=== PATIENT | female | born 1945 | race Caucasian/White ===

== ENCOUNTER → 2016-03-24 | Outpatient (CLI) | payer MEDICARE, BC, OTHER ==
[~2016-03-24] VITALS: Ht 172.7 cm; Wt 108.2 kg
[~2016-03-24] MED LIST: ALEVE220 MG PO; AMLOPIDINE PO; ASPI325T6 PO; CALCIUM 600600 M2; CELEBREX 200MG200 MG PO; CELEBREX50 MG PO; CELEXA 20MG20 MG/TAB PO; CELEXA10 MG PO; COMPLETE SENIOR1 TA1 PO; COZAAR 50MG50 MG/TAB PO; DETROL 2MG TAB2 MG; DETROL LA4 PO; FE-TABS325 MG PO; FERROUS SULFATE65 MG; FERROUS SULFATE65 MG PO; FLONASEALLERGY NS; FOLIC ACID 40400 MCG PO; GABAPENTIN; HCTZ; IRON TABLETS325 MG PO; LIPITOR20 MG PO; LIPITOR40 MG PO; NORCO 325 MG-51 TAB PO; NORCO 325 MG-7.1 TAB PO; OSCAL 500 TAB500 MG PO; PRILOSEC 20MG20 MG PO; PROAIR HFA0.09 MG/AC IH; ROXICODONE 55 MG/TAB PO; SINGULAIR; SPIRONOLACTONE25 MG PO; STOOL SOFTENER100 M2 PO; THERAGRAN1 TA1 PO; ULTRAM; VITAMIN C500 MG PO; VITAMIN D1000 IU; VITAMIN D1000 IU PO; VITAMIN D31000 I1 PO; [UNRECOGNIZED DRUG - OTHER]; [UNRECOGNIZED DRUG - REMARK]
== END ==
LOC: LIGHT 01-14 09:47
DX: I10 Essential (primary) hypertension (principal); E78.4 Other hyperlipidemia; G47.33 Obstructive sleep apnea (adult) (pediatric); E66.09 Other obesity due to excess calories; Z68.35 Body mass index [BMI] 35.0-35.9, adult

== ENCOUNTER → 2016-09-28 | Outpatient (CLI) | payer MEDICARE, BC, OTHER | LOC: MC.RAD 08:00 | DX: Z12.31 Encounter for screening mammogram for malignant neoplasm of breast (principal); Z01.419 Encounter for gynecological examination (general) (routine) without abnormal findings ==

== ENCOUNTER → 2016-10-27 | Outpatient (CLI) | payer MEDICARE, BC, OTHER ==
[~2016-10-27] VITALS: Ht 172.7 cm; Wt 110.0 kg
[2016-10-27 14:48] VITALS: BP 120/70; PULSE 72
== END ==
LOC: LIGHT
DX: I10 Essential (primary) hypertension (principal); E78.5 Hyperlipidemia, unspecified; G47.33 Obstructive sleep apnea (adult) (pediatric); E66.9 Obesity, unspecified; Z68.36 Body mass index [BMI] 36.0-36.9, adult; Z71.3 Dietary counseling and surveillance

== ENCOUNTER → 2016-12-22 | Outpatient (CLI) | payer MEDICARE, BC, OTHER ==
[~2016-12-22] VITALS: Ht 172.7 cm; Wt 112.0 kg
[2016-12-22 10:57] VITALS: BP 106/50; PULSE 68
== END ==
LOC: LIGHT 10:22
DX: I10 Essential (primary) hypertension (principal); E78.5 Hyperlipidemia, unspecified; G47.33 Obstructive sleep apnea (adult) (pediatric); E66.9 Obesity, unspecified; Z68.37 Body mass index [BMI] 37.0-37.9, adult; Z71.3 Dietary counseling and surveillance

== ENCOUNTER → 2017-01-26 | Outpatient (CLI) | payer MEDICARE, BC, OTHER ==
[~2017-01-26] VITALS: Ht 172.7 cm; Wt 113.2 kg
[2017-01-26 09:19] VITALS: BP 120/50; PULSE 76
== END ==
LOC: LIGHT 08:46
DX: I10 Essential (primary) hypertension (principal); E78.5 Hyperlipidemia, unspecified; G47.33 Obstructive sleep apnea (adult) (pediatric); E66.9 Obesity, unspecified; Z68.37 Body mass index [BMI] 37.0-37.9, adult; Z71.3 Dietary counseling and surveillance
CPT/HCPCS: G0463

== ENCOUNTER → 2018-02-01 | Outpatient (CLI) | payer MEDICARE, BC, OTHER ==
[~2018-02-01] VITALS: Ht 172.7 cm; Wt 119.3 kg
[2018-02-01 15:12] VITALS: BP 120/60; PULSE 64
== END ==
LOC: LIGHT 03-16 10:06
DX: I10 Essential (primary) hypertension (principal); E78.5 Hyperlipidemia, unspecified; G47.33 Obstructive sleep apnea (adult) (pediatric); E66.9 Obesity, unspecified; Z68.41 Body mass index [BMI] 40.0-44.9, adult; Z71.3 Dietary counseling and surveillance
CPT/HCPCS: G0463

== ENCOUNTER → 2018-03-12 | Outpatient (CLI) | payer MEDICARE, BC, OTHER | LOC: MC.RAD 13:37 | DX: Z12.31 Encounter for screening mammogram for malignant neoplasm of breast (principal) ==

== ENCOUNTER → 2018-03-22 | Outpatient (CLI) | payer MEDICARE, BC, OTHER ==
[~2018-03-22] VITALS: Ht 172.7 cm; Wt 119.5 kg
[2018-03-22 11:33] VITALS: BP 136/50; PULSE 72
== END ==
LOC: LIGHT
DX: I10 Essential (primary) hypertension (principal); E78.5 Hyperlipidemia, unspecified; G47.33 Obstructive sleep apnea (adult) (pediatric); E66.9 Obesity, unspecified; Z68.41 Body mass index [BMI] 40.0-44.9, adult; Z71.3 Dietary counseling and surveillance
CPT/HCPCS: G0463

== ENCOUNTER → 2018-04-19 | Outpatient (CLI) | payer MEDICARE, BC, OTHER ==
[~2018-04-19] VITALS: Ht 172.7 cm; Wt 119.7 kg
[2018-04-19 10:20] VITALS: BP 130/50; PULSE 80
== END ==
LOC: LIGHT 10:05
DX: I10 Essential (primary) hypertension (principal); E78.5 Hyperlipidemia, unspecified; G47.33 Obstructive sleep apnea (adult) (pediatric); E66.9 Obesity, unspecified; Z68.41 Body mass index [BMI] 40.0-44.9, adult; Z71.3 Dietary counseling and surveillance
CPT/HCPCS: G0463

== ENCOUNTER → 2018-05-17 | Outpatient (CLI) | payer MEDICARE, BC, OTHER ==
[~2018-05-17] VITALS: Ht 172.7 cm; Wt 116.8 kg
[2018-05-17 11:11] VITALS: BP 134/74; PULSE 71
== END ==
LOC: LIGHT 10:37
DX: E78.5 Hyperlipidemia, unspecified (principal); I10 Essential (primary) hypertension; G47.33 Obstructive sleep apnea (adult) (pediatric); Z68.39 Body mass index [BMI] 39.0-39.9, adult; Z71.3 Dietary counseling and surveillance
CPT/HCPCS: G0463

== ENCOUNTER → 2018-07-19 | Outpatient (CLI) | payer MEDICARE, BC, OTHER ==
[~2018-07-19] VITALS: Ht 172.7 cm; Wt 116.6 kg
[2018-07-19 13:53] VITALS: BP 126/68; PULSE 76
== END ==
LOC: LIGHT 06-21 16:06
DX: I10 Essential (primary) hypertension (principal); E78.5 Hyperlipidemia, unspecified; G47.33 Obstructive sleep apnea (adult) (pediatric); E66.9 Obesity, unspecified; Z68.39 Body mass index [BMI] 39.0-39.9, adult; Z71.3 Dietary counseling and surveillance
CPT/HCPCS: G0463

== ENCOUNTER 2018-07-20 11:30 | Outpatient (RCR) | payer MEDICARE, BC, OTHER | END 2018-07-20 11:45 | disposition home or self-care (01) | LOC: WSC 11:30 | DX: M17.11 Unilateral primary osteoarthritis, right knee (principal); M25.562 Pain in left knee ==

== ENCOUNTER 2019-01-31 12:39 | Emergency (ER) | payer MEDICARE, BC, OTHER ==
[~2019-01-31] VITALS: Ht 175.3 cm; Wt 118.2 kg
[2019-01-31 12:59] VITALS: BP 156/69; TEMP 97.5
[2019-01-31 16:14] VITALS: PULSE 70
== END 2019-01-31 16:15 | disposition home or self-care (01) ==
LOC: COL.ER 12:39
DX: S52.572A Other intraarticular fracture of lower end of left radius, initial encounter for closed fracture (principal); S80.02XA Contusion of left knee, initial encounter; S09.90XA Unspecified injury of head, initial encounter; I10 Essential (primary) hypertension; F32.9 Major depressive disorder, single episode, unspecified; M54.9 Dorsalgia, unspecified; G89.29 Other chronic pain; W01.198A Fall on same level from slipping, tripping and stumbling with subsequent striking against other object, initial encounter; Y92.009 Unspecified place in unspecified non-institutional (private) residence as the place of occurrence of the external cause
CPT/HCPCS: Q4050

== ENCOUNTER → 2019-03-26 | Outpatient (CLI) | payer MEDICARE, BC, OTHER | LOC: MC.RAD 16:42 | DX: Z12.31 Encounter for screening mammogram for malignant neoplasm of breast (principal) ==

== ENCOUNTER 2019-07-06 14:43 | Emergency (ER) | payer MEDICARE, BC, OTHER ==
[~2019-07-06] VITALS: Ht 175.3 cm; Wt 117.7 kg
[2019-07-06 14:51] VITALS: TEMP 98.4
[2019-07-06 15:17] LABS: BASO % 0.2 % (0.0-2.0); EOS # 0.2 (0.0-0.7); EOS % 1.5 % (0-4.0); GRAN # 8.5 (1.4-6.5); GRAN % 85.7 % (42.2-75.2); HEMOGLOBIN 13.2 g/dl (12.5-16.0); LYMPH % 10.5 % (20.0-51.0); MEAN CELL VOLUME 92 fl (80.0-100.0); MEAN CORPUSCULAR HEMOGLOBIN 30 pg (27.0-31.0); MEAN CORPUSCULAR HGB CONC 33 g/dl (33.0-37.0); MEAN PLATELET VOLUME 9.5 fl (7.4-10.4); MONO # 0.1 (0.1-0.6); MONO % 0.9 % (1.7-9.3); PLATELET COUNT 286 K/mm3 (130-400); RED BLOOD COUNT 4.36 M/mm3 (4.10-5.30); REDCELL DISTRIBUTION WIDTH-CV 12.9 % (11.5-14.5)
[2019-07-06 15:44] LABS: COLLECTION METHOD CLEAN CATCH
[2019-07-06 15:50] LABS: MUCOUS Present /lpf; PH 5 (5-8); URINE APPEARANCE Cloudy; URINE BACTERIA Rare /hpf; URINE BILIRUBIN Negative (NEGATIVE); URINE BLOOD 2+ (NEGATIVE); URINE COLOR Yellow; URINE GLUCOSE Negative (NEGATIVE); URINE KETONE Negative (NEGATIVE); URINE LEUKOCYTE ESTERASE 2+ (NEGATIVE); URINE NITRATE Negative (NEGATIVE); URINE PROTEIN(semi-quant) Negative (NEGATIVE); URINE UROBILINOGEN Negative (NEGATIVE)
[2019-07-06 15:52] LABS: ALBUMIN 4.3 gm/dL (3.5-5.0); BILIRUBIN,TOTAL 0.6 mg/dL (0.0-1.0); C-REACTIVE PROTEIN 1.6 mg/dL (0.0-0.9); CALCIUM 9.5 mg/dL (8.4-10.2); POTASSIUM 3.7 mmol/L (3.4-5.0); TOTAL PROTEIN 8.2 gm/dL (6.4-8.2)
[2019-07-06] MEDS ORDERED: CEFTIN500 MG PO (17:27)
[2019-07-06] MEDS ORDERED: NORCO 325 MG-51 TAB PO (17:27)
[2019-07-06 17:37] VITALS: BP 179/90; PULSE 85
== END 2019-07-06 17:39 | disposition home or self-care (01) ==
LOC: COL.ER 14:43
PROVIDERS: Emergency Medicine
DX: N13.2 Hydronephrosis with renal and ureteral calculous obstruction (principal); I10 Essential (primary) hypertension; Z90.89 Acquired absence of other organs; Z79.51 Long term (current) use of inhaled steroids
CPT/HCPCS: J0696; J1885; J2405; J3010; J7030; Q9967

== ENCOUNTER → 2020-05-07 | Outpatient (CLI) | payer MEDICARE, BC, OTHER ==
[~2020-05-07] MED LIST changes: +CEFTIN500 MG PO
== END ==
LOC: MC.RAD 10:25
DX: Z12.31 Encounter for screening mammogram for malignant neoplasm of breast (principal)